=== PATIENT | male | born 2000 | race Caucasian/White ===

== ENCOUNTER 2023-11-28 09:26 | Emergency (ER) | payer SELFPAY ==
[2023-11-28 09:34] VITALS: BP 117/71; TEMP 98
[2023-11-28] MEDS ORDERED: LIQUIFILM TEARS15 ML OS (10:29)
[2023-11-28 10:48] VITALS: PULSE 68
== END 2023-11-28 10:49 | disposition home or self-care (01) ==
LOC: COL.ER 09:26
DX: H11.152 Pinguecula, left eye (principal); F17.200 Nicotine dependence, unspecified, uncomplicated